=== PATIENT | male | born 1960 | race African-American/Black ===

== ENCOUNTER 2022-10-23 08:42 | Observation (INO) | payer BC, MEDICAID, SELFPAY ==
[2022-10-23] VITALS (106 sets, daily range): BP systolic 119–177; BP diastolic 67–105; PULSE 43–108; RESP 12–34; TEMP 36.6; O2SAT 90–100; BMI 21.4; BMI 20.2
--- NOTE | 2022-10-23 08:47 | CT_ITS ---
WS: [id number] CT HEAD NONCONTRAST HISTORY: ACUTE SYMPTOMS OF STROKE, right-sided weakness. TECHNIQUE: Contiguous axial imaging performed through the brain in 2.5 mm imaging. Bone and soft tiss ue windows. Sagittal and coronal reformats reviewed. All CT scans at [facility] use at least one of these dose optimization techniques: automated exposure control; mA and/or kV adjustment per pa tient size (includes targeted exams where dose is matched to clinical indication); or iterative recon struction. DLP: 1092.14 mGy-cm. COMPARISON: None available. No acute intracranial hemorrhage, midline shift or mass effect. Mild atrophy and mild small vessel ischemic type changes. No infarct. Ventricles: Normal size with no hydrocephalus. No inferior displacement of the cerebellar tonsils. Paranasal sinuses: Mild mucoperiosteal thickening. No air-fluid levels. Mastoid air cells: Well pneumatized. Calvarium and scalp: Skull is intact with no soft tissue edema or swelling. CT/CT head thrombolytic 86354 IMPRESSION: 1. No acute intracranial hemorrhage or edema. 2. Very mild atrophy and mild small vessel ischemic type changes. No prior inf arct. Notified Michael Thomson DO at 10/23/2022 8:59 AM.
--- NOTE | 2022-10-23 08:54 | ED_ITS ---
HPI - Neuro Symptoms/Deficit General: Chief Complaint: Neuro Symptoms/Deficit Stated Complaint: RT SIDED WEAKNESS Time Seen by Provider: 10/23/22 08:53 Source: patient Mode of arrival: EMS History of Present Illness: 62-year-old black male presents emergency room via EMS complaining of right sided upper extremity weakness. He went to bed last night around 8:00 he was fine at that time and then he woke up at between 2 and 3 AM he states he knows he seemed to have trouble making a fist. On arrival here initial bedside exam he is actually hyperesthetic on the right side. He has no limb ataxia other aspects of the NIH score are 0. He denies any chest pain or tightness. He has previously had a stroke and states he is supposed to be on a blood thinning medicine that he is not sure the name of but he has not been taking it. Onset (ago): hour(s) (13) Time: 08:42 Last Observed Normal: 20:00 Location: left arm History of same: No Severity: mild Quality: weak Relieving factors: none Exacerbating factors: none Context: sudden onset (Woke up with symptoms) Associated symptoms: Deny chest pain, cough, diaphoresis, fevers/chills, headache(s), anorexia, malaise, nausea, seizures, short of breath, syncope, tingling, vertigo, vomiting or weakness Treatments Prior to Arrival: none Review of Systems Const: Denies: fever(s), chills, fatigue, malaise or diaphoresis ENMT: Denies: throat pain, ear or mastoid pain, nasal discharge or nasal congestion Card: Denies: chest pain or syncope Resp: Denies: dyspnea, productive cough or non-productive cough GI: Denies: abdominal pain, nausea or vomiting : Denies: flank pain, dysuria, urinary frequency or urinary urgency Musc: Denies: neck pain or back pain Skin/Breast: Denies: rash or pruritus Neuro: Denies: headache(s) or vertigo PFS ED PFSH: Medical History History of CVA (cerebrovascular accident) Family History (Updated 10/23/22 @ 12:15 by Roger Castillo MD) Other Dementia Social History (Updated 10/23/22 @ 12:16 by Roger Castillo MD) Smoking and tobacco status: current some day smoker Alcohol intake: current Alcohol intake frequency: 0-2 Drinks per Day Substance/Drug Use: current Substance/Drug use type: Marijuana NIH stroke score NIHSS: Level Of Consciousness - 1a: 0 Level Of Consciousness Questions - 1b: Both Correct Level Of Consciousness Commands - 1c: Both Correct Best Gaze - 2: Normal Visual Murguia - 3: No Visual Loss Facial Palsy - 4: Normal Motor Arm Right - 5: No Drift Motor Arm Left - 5: No Drift Motor Leg Right - 6: No Drift Motor Leg Left - 6: No Drift Limb Ataxia - 7: Present In One Limb Sensory - 8: Mild To Moderate Loss Best Language - 9: No Aphasia Dysarthia - 10: Normal Extinction And Inattention - 11: 0 Score: Total Score: 2 Physical Exam Const: GENERAL APPEARANCE: cooperative and comfortable ORIENTATION/CONSCIOUSNESS: Yes awake, Yes oriented to person, Yes oriented to place and Yes oriented to time HENMT: COMMON NORMALS: normocephalic, atraumatic and hearing grossly normal bilaterally HEAD & SCALP: normocephalic and atraumatic Resp: COMMON NORMALS: normal respiratory effort, No retractions, No use of accessory muscles and clear to auscultation bilaterally AUSCULTATION: clear to auscultation bilaterally Cardio: COMMON NORMALS: regular rate, regular rhythm and No murmurs present (Cardio) RATE: regular rate RHYTHM: regular rhythm GI: COMMON NORMALS: Soft to palpation and No hepatosplenomegaly present AUSCULTATION: Yes normoactive bowel sounds PALPATION: Yes Soft to palpation, No Tenderness to palpation present (GI), No Guarding due to palpation present (GI) and Yes No hepatosplenomegaly present Extremity: COMMON NORMALS: normal to inspection, capillary refill normal, no clubbing, cyanosis or edema, no calf tenderness and no pedal edema Neuro: SENSORIUM/ORIENTATION: Yes oriented to person, Yes oriented to place and Yes oriented to time Skin: COMMON NORMALS: no rashes or lesions noted GENERAL SKIN EXAM: no rashes or lesions noted Course Vital Signs: Vital signs: Vital Signs Pulse Rate 48 L 10/23/22 13:05 Respiratory Rate 15 10/23/22 13:05 Blood Pressure 120/88 10/23/22 13:05 Pulse Oximetry 100 10/23/22 13:05 Oxygen Delivery Me thod 10/23/22 12:38 MDM - Neuro Symptoms/Deficit Medical Decision Making Weakness in the right hand with very mild right arm ataxia decreased sensation the right as well. Patient states he has previously been on Plavix for history of stroke. No other deficits noted. He is outside the time window for any tPA and his stroke score is not high enough to warrant embolectomy. Discussed with hospitalist will admit for secondary prevention and rehab. Medical Records I reviewed the patient's medical records. Lab Data I reviewed the patient's lab results. 10/23/22 08:54 10/23/22 08:[address] 10/23/22 08:47 IMPRESSION: 1. No acute intracranial hemorrhage or edema. 2. Very mild atrophy and mild small vessel ischemic type changes. No prior infarct. Notified Michael Thomson DO at 10/23/2022 8:59 AM. Chest X-Ray 10/23/22 12:19 IMPRESSION: No acute chest abnormality. Laboratory Results WBC 3.5 10^3/uL (4.0-10.0) L 10/23/22 08:54 RBC 5.63 10^6/uL (4.1-5.3) H 10/23/22 08:54 Hgb 12.3 g/dL (11.7-16.6) 10/23/22 08:54 Hct 40.4 % (42.0-52.0) L 10/23/22 08:54 MCV 71.8 fl (80-94) L 10/23/22 08:54 MCH 21.8 pg (28.0-34.0) L 10/23/22 08:54 MCHC 30.4 g/dL (30.0-36.0) 10/23/22 08:54 RDW 15.9 % (12.1-15.1) H 10/23/22 08:54 Plt Count 271 10^3/cmm (130-400) 10/23/22 08:54 MPV 9.0 fL (7.4-10.4) 10/23/22 08:54 Neut % (Auto) 44.0 % 10/23/22 08:54 Lymph % (Auto) 33.6 % 10/23/22 08:54 Dunn % (Auto) 11.8 % 10/23/22 08:54 Eos % (Auto) 8.0 % 10/23/22 08:54 Baso % (Auto) 2.0 % 10/23/22 08:54 Neut # (Auto) 1.53 10^3/uL (1.8-7.7) L 10/23/22 08:54 Lymph # (Auto) 1.2 10^3/uL (0.8-4.8) 10/23/22 08:54 Dunn # (Auto) 0.4 10^3/uL (0.2-0.9) 10/23/22 08:54 Eos # (Auto) 0.3 10^3/uL (0.0-0.8) 10/23/22 08:54 Baso # (Auto) 0.1 10^3/uL (0.0-0.1) 10/23/22 08:54 Nucleated RBC % (auto) 0 % 10/23/22 08:54 Nucleated RBCs # 0.0 /100WBC 10/23/22 08:54 PT 12.30 SECONDS (12.1-14.9) 10/23/22 09:08 INR 0.89 (0.8-1.2) 10/23/22 09:08 APTT 33.0 SECONDS (23.9-36.7) 10/23/22 09:08 Sodium 133 mmol/L (136-145) L 10/23/22 08:54 Potassium 3.9 mmol/L (3.5-5.1) 10/23/22 08:54 Chloride 102 mmol/L (98-107) 10/23/22 08:54 Carbon Dioxide 26 mmol/L (22-29) 10/23/22 08:54 Anion Gap 8.9 (5-19) 10/23/22 08:54 BUN 12 mg/dL (8-23) 10/23/22 08:54 Creatinine 0.9 mg/dL (0.7-1.2) 10/23/22 08:54 GFR Calculation 103.1 mL/min (90-130) 10/23/22 08:54 Glucose 92 mg/dL (65-115) 10/23/22 08:54 POC Glucose 97 mg/dL (70-110) 10/23/22 09:10 Calculated Osmolality 275 mOsm/kg (285-295) L 10/23/22 08:54 Calcium 8.2 mg/dL (8.5-10.5) L 10/23/22 08:54 Total Bilirubin 0.3 mg/dL (0.15-1.2) 10/23/22 08:54 AST 23 U/L (0-40) 10/23/22 08:54 ALT 16 U/L (0-41) 10/23/22 08:54 Alkaline Phosphatase 82 U/L (40-130) 10/23/22 08:54 Total Protein 6.4 g/dL (6.6-8.7) L 10/23/22 08:54 Albumin 3.7 g/dL (3.5-5.2) 10/23/22 08:54 Globulin 2.7 g/dL (1.3-4.6) 10/23/22 08:54 TSH 1.00 uIU/mL (0.27-4.20) 10/23/22 08:54 Discharge Plan Discharge Patient Disposition: Admitted As Inpatient Admit Provider: Roger Castillo Clinical Impression: Cerebrovascular accident, History of CVA (cerebrovascular accident) Condition: Stable Coding Level of Care Code ED Process Coordinator for Tacos Abdi
[2022-10-23 09:03] LABS: Basophils # 0.1 10^3/uL (0.0-0.1); Eosinophils # 0.3 10^3/uL (0.0-0.8); Hematocrit 40.4 % (42.0-52.0); Hemoglobin 12.3 g/dL (11.7-16.6); Lymphocytes # 1.2 10^3/uL (0.8-4.8); Lymphocytes % 33.6 %; Mean Corpuscular HGB Conc 30.4 g/dL (30.0-36.0); Mean Corpuscular Hemoglobin 21.8 pg (28.0-34.0); Mean Corpuscular Volume 71.8 fl (80-94); Monocytes # 0.4 10^3/uL (0.2-0.9); Monocytes % 11.8 %; Neutrophils # 1.53 10^3/uL (1.8-7.7); Nucleated Red Blood Cells % 0 %; Platelet Count 271 10^3/cmm (130-400); Red Blood Count 5.63 10^6/uL (4.1-5.3); Red Cell Distribution Width 15.9 % (12.1-15.1); White Blood Count 3.5 10^3/uL (4.0-10.0)
[2022-10-23 09:15] LABS: Glucose Point of Care 97 mg/dL (70-110)
[2022-10-23 09:21] LABS: Alanine Aminotransferase 16 U/L (0-41); Albumin Level 3.7 g/dL (3.5-5.2); Alkaline Phosphatase 82 U/L (40-130); Anion Gap 8.9 (5-19); Aspartate Amino Transferase 23 U/L (0-40); Blood Urea Nitrogen 12 mg/dL (8-23); Calcium 8.2 mg/dL (8.5-10.5); Carbon Dioxide 26 mmol/L (22-29); Chloride 102 mmol/L (98-107); Globulin 2.7 g/dL (1.3-4.6); Glomerular Filtration Rate 103.1 mL/min (90-130); Glucose 92 mg/dL (65-115); Osmolality Calculated 275 mOsm/kg (285-295); Potassium 3.9 mmol/L (3.5-5.1); Sodium 133 mmol/L (136-145); Total Bilirubin 0.3 mg/dL (0.15-1.2); Total Protein 6.4 g/dL (6.6-8.7)
[2022-10-23 09:43] LABS: INR 0.89 (0.8-1.2)
--- NOTE | 2022-10-23 09:58 | ECG_ITS ---
[facility] Test Date: 2022-10-23 Pat Name: Juan Ghotra Department: Room: Gender: Male Roll Over Loader: : 1960 Requested By: Michael Avalos Order Number: [id number] Edgar MD: Tuan Bonner M.D. Measurements Intervals [place] Rate: 47 P: 78 NH: 157 QRS: 82 QRSD: 110 T: 53 QT: 443 QTc: 395 Interpretive Statements SINUS BRADYCARDIA SEPTAL MYOCARDIAL INFARCTION , PROBABLY OLD [40+ ms Q WAVE IN V1/V2] No previous ECG available for comparison Electronically Signed On 10-23-2022 13:06:38 CDT by Tuan Bonner M.D. [email or web address]
--- NOTE | 2022-10-23 11:05 | PM.HP ---
Providers/Chief Complaint Admitting Physician: Roger Castillo MD Chief Complaint: RT SIDED WEAKNESS History of Present Illness Juan Ghotra is a 62 year old male presenting to the emergency department complaining of right hand numbness, weakness, and pain. He reports he was well when he went to sleep around 8 PM last night. Upon awakening in the middle of the night, he reports that he had difficulty working the buttons on his pants to go urinate. He reports that that discomfort has continued. He had first thought he might have compressed the wrist while sleeping on the couch. He denies any speech difficulty or lower leg weakness. He reports 11 years ago he had a stroke affecting the left side of his body. He reports he had significant weakness on this side for many months before it seemed to finally resolved. He reports a left facial droop at that time. He states he is on Plavix, but this was stopped when he no longer had any refills. He denies any chest pain, headache, difficulty swallowing, nausea. Review of Systems General: Reports: 10 or more systems reviewed and unremarkable except in HPI and below Const: Denies: fever(s) Eyes: Denies: change in vision ENMT: Denies: throat pain Card: Denies: chest pain Resp: Denies: dyspnea GI: Denies: abdominal pain, hematochezia or melena Neuro: Reports: numbness in extremities and weakness in extremities Medications/Allergies Home Medications Medication Instructions Recorded Confirmed Last Taken Type No Known Home Medications 10/23/22 10/23/22 Unknown History Allergies Allergy/AdvReac Type Severity Reaction Status Date / Time No Known Allergies Allergy Verified 10/23/22 09:15 PFSH Acute PFSH: Medical History History of CVA (cerebrovascular accident) Family History (Updated 10/23/22 @ 12:15 by Roger Castillo MD) Other Dementia Social History (Updated 10/23/22 @ 12:16 by Roger Castillo MD) Smoking and tobacco status: current some day smoker Alcohol intake: current Alcohol intake frequency: 0-2 Drinks per Day Substance/Drug Use: current Substance/Drug use type: Marijuana Vitals/I&O/Wt Last Vital Signs Pulse 53 L 10/23/22 09:15 Resp 18 10/23/22 09:15 BP 149/87 10/23/22 09:15 Pulse Ox 100 10/23/22 09:15 O2 Del Method 10/23/22 09:10 Weight last 48 hrs Weight 95.254 kg Physical Exam Narrative: General exam is a black male, no distress, conversant and pleasant HEENT: Atraumatic and normocephalic. Pupils equally round. Oropharynx clear. Neck is supple no lymphadenopathy thyromegaly Cardiovascular bradycardic, regular, no murmur Lungs clear no wheezing or crackles Abdomen is soft nontender positive bowel sounds. No obvious organomegaly exam was deferred Extremities no cyanosis clubbing or edema, cap refill brisk Skin intact Neuro: No facial droop, no significant drift. I did not check his gait but discussed gait with nursing who observed this and reported to be normal. He does have some weakness in his right upper extremity. This appears to only be his hand and wrist area. He has increased pain with flexion and extension of his wrist. He has numbness of all of his fingers, not truly following the pattern of ulnar or median nerve entrapment. Data 10/23/22 08:54 10/23/22 08:54 Other Labs: PT and PTT are normal LFTs within normal limits, calcium 8.2, TSH which I ordered is 1, albumin 3.7 I have ordered a chest x-ray which I will review Head CT demonstrated no acute changes EKG which I reviewed demonstrates sinus bradycardia, normal axis, no acute changes A&P Assessment and plan (1) Weakness: Patient with weakness and pain right upper extremity. CVA is not completely excluded. However, nerve compression at the wrist is not completely out of the question. He does report previous history of CVA, diagnosed clinically, with no work-up. Check carotid ultrasound, echocardiogram Telemetry Initiate Plavix, aspirin and statin. Aspirin 325 mg p.o. now x1 CBC BMP in the morning IV fluids Therapy consultations Lipid profile in the morning Observation (2) History of CVA (cerebrovascular accident): see above Plan Tobacco dependency. Counseling 3 to 5 minutes. Discussed abstinence. Other medical problems as outlined in past medical history Lovenox for DVT prophylaxis Full code` He will need arrangements for a primary care provider as well. Attestations Medical Necessity Statement*: Will need less than 2 midnight stay for evaluation and treatment of right upper extremity numbness, weakness, and pain. Diagnoses Weakness R53.1 History of CVA (cerebrovascular accident) Z86.73 Time Spent (min) 39
--- NOTE | 2022-10-23 11:09 | USCV_ITS ---
Brandin Juan Age: 62 Gender: M : 1960 Exam Date: 10/23/2022 12:16 Ordering Phys: Roger Castillo MD Technologist: Chilo Ward Exam Location: [facility] [place] Indication: cva Risk Factors: Previous Vascular Surgery: Right Brachial BP: / Left Brachial BP: / Right Left Velocity (cm/s) Spectral Plaque Velocity (cm/s) Spectral Plaque Syst/Diast Broadening Syst/Diast Broadening 122.40/30.90 Prox CCA 136.70/ 38.80 79.40/ 17.60 Mid CCA 88.60 / 24.90 80.50/ 17.60 Distal CCA 96.30 / 15.50 111.90/38.80 Prox ICA 96.30 / 28.00 116.50/35.70 Mid ICA 115.00/ 31.10 110.30/40.40 Distal ICA 94.80 / 38.80 188.00 ECA 146.00 0.95 ICA/CCA 0.84 Antegrade Vertebral Antegrade 71.50/ 15.50 cm/s 80.80/ 21.80 cm/s Tri Subclavian Tri 99.40 144.5 0 FINDINGS Comparison: none available. No significant elevation of systolic or diastolic velocities. Waveforms are normal. Mild bilateral scattered calcified plaque and intimal thickening throughout the common carotid arteries and extending through the bifurcation. Antegrade vertebral arteries. CONCLUSIONS Bilateral ICA stenosis less than 50%. Mild carotid atherosclerosis. Dr. Alicia Mcdowell DO (Electronically Signed) Final Date: 23 October 2022 14:40 S
--- NOTE | 2022-10-23 11:26 | USCV_ITS ---
Juan Ghotra Age: 62 Gender: M : 1960 Exam Date: 10/23/2022 11:57 Ordering Phys: Roger Castillo MD Technologist: Chilo Ward [place] [facility] [place]ication: cva BP: 120 / 88 HR: 57 Rhythm: Sinus Technical Quality: Adequate MEASUREMENTS (Male / Female) Normal Values 2D ECHO LV Diastolic Diameter PLAX 4.4 cm 4.2 - 5.9 / 3.9 - 5.3 cm LV Systolic Diameter PLAX 2.8 cm IVS Diastolic Thickness 1.3 cm 0.6 - 1.0 / 0.6 - 0.9 cm IVS Systolic Thickness 2.0 cm LVPW Diastolic Thickness 1.5 cm 0.6 - 1.0 / 0.6 - 0.9 cm LVPW Systolic Thickness 1.7 cm LVOT Diameter 2.1 cm LV Ejection Fraction 2D Teich 66.6 % LV Ejection Fraction MOD 2C 75.2 % LV Ejection Fraction 2C AL 73.9 % LA Diameter 4.1 cm IVC Diameter 1.7 cm M-MODE Aortic Annulus Diameter 4.0 cm LA Ao Ratio MM 1.1 MV E Point Septal Separation 1.1 cm DOPPLER AV Peak Velocity 177.3 cm/s LVOT Peak Velocity 110.0 cm/s AV Area Cont Eq vti 2.7 cm squared AV Area Cont Eq pk 2.1 cm squared MV Area PHT 5.0 cm squared Mitral E to A Ratio 0.9 MV E' Velocity 57.5 cm/s Mitral E to MV E' Ratio 10.2 Mitral E to LV E' Lateral Ratio 10.1 Mitral E to LV E' Septal Ratio 10.4 TR Peak Velocity 240.3 cm/s TR Peak Gradient 23.1 mmHg TV Peak E Velocity 83.0 cm/s Right Atrial Pressure 3.0 mmHg Pulmonary Artery Systolic Pressu 26.1 mmHg FINDINGS Left Ventricle Left ventricle is normal in size. LV systolic function is normal with EF of 60 to 65%. No regional wall motion normalities are seen. Grade 1 diastolic dysfunction Right Ventricle Normal in size and function Right Atrium Normal in size Left Atrium Normal in size Mitral Valve Structurally normal mitral valve. No significant stenosis or regurgitation. Aortic Valve Aortic valve is thickened and calcified. No significant stenosis or regurgitation. Tricuspid Valve Mild tricuspid regurgitation.Insufficient TR jet to calculate RVSP Pulmonic Valve Not well visualized. Pericardium Normal Aorta Normal in size IVC Appears to be normal CONCLUSIONS LV systolic function is normal with EF of 60 to 65%. Grade 1 diastolic dysfunction Mild tricuspid regurgitation No comparison studies are available Tuan Bonner MD (Electronically Signed) Final Date: 24 October 2022 07:38 S
--- NOTE | 2022-10-23 12:19 | XR_ITS ---
WS: [id number] XR chest 1V portable [id number] REASON FOR EXAM: CVA FINDINGS: Mild tortuosity the thoracic aorta. Normal heart size. Calcified granulomatous disease in both hemithoraces. No acute or subacute pulmonary parenchymal or pleural abnormality. Bony thorax is intact without significant abnormality. XR/XR chest 1V portable [id number] IMPRESSION: No acute chest abnormality.
[2022-10-23] MEDS: aspirin 325 mg Tablet PO (12:24)
[2022-10-23] MEDS: enoxaparin 40 mg/0.4 mL Syringe SUBCUT (12:24)
[2022-10-23] MEDS: sodium chloride 0.9% 1,000 ML 75 ML IV (12:55)
--- NOTE | 2022-10-23 15:42 | PC.OT ---
OT EVALUATION ATTEMPTED. PATIENT IS SLEEPING SOUNDLY. WILL ATTEMPT AGAIN AT A LATER TIME
[2022-10-23] MEDS: atorvastatin 40 mg Tablet PO (21:08)
[2022-10-24] MEDS: sodium chloride 0.9% 1,000 ML 75 ML IV (02:22)
[2022-10-24 04:07] VITALS: BP 154/86; PULSE 59; RESP 10; TEMP 36.8; O2SAT 100
[2022-10-24 04:15] LABS: Basophils # 0.1 10^3/uL (0.0-0.1); Basophils % 1.8 %; Eosinophils # 0.3 10^3/uL (0.0-0.8); Eosinophils % 7.8 %; Hematocrit 41.3 % (42.0-52.0); Hemoglobin 12.7 g/dL (11.7-16.6); Lymphocytes # 1.6 10^3/uL (0.8-4.8); Lymphocytes % 42.7 %; Mean Corpuscular HGB Conc 30.8 g/dL (30.0-36.0); Mean Corpuscular Hemoglobin 21.9 pg (28.0-34.0); Mean Corpuscular Volume 71.2 fl (80-94); Mean Platelet Volume 8.1 fL (7.4-10.4); Monocytes # 0.5 10^3/uL (0.2-0.9); Monocytes % 11.7 %; Neutrophils # 1.38 10^3/uL (1.8-7.7); Nucleated Red Blood Cells % 0 %; Platelet Count 240 10^3/cmm (130-400); Red Cell Distribution Width 16.1 % (12.1-15.1); White Blood Count 3.8 10^3/uL (4.0-10.0)
[2022-10-24 04:29] LABS: Estmated Average Glucose 123; Hemoglobin A1C 5.9 % (4.0-6.0)
[2022-10-24 04:40] LABS: Anion Gap 13.1 (5-19); Blood Urea Nitrogen 11 mg/dL (8-23); Calcium 8.4 mg/dL (8.5-10.5); Carbon Dioxide 25 mmol/L (22-29); Chloride 105 mmol/L (98-107); Chol HDL Ratio 2.59 mg/dL (1.0-5.00); Cholesterol 145 mg/dL (0-200); Glomerular Filtration Rate 103.1 mL/min (90-130); Glucose 101 mg/dL (65-115); HDL Cholesterol 56 mg/dL (60-100); LDL Cholesterol Calculated 76 mg/dL (50-129); LDL HDL Ratio 1.36 RATIO (0.00-3.22); Osmolality Calculated 288 mOsm/kg (285-295); Potassium 4.1 mmol/L (3.5-5.1); Sodium 139 mmol/L (136-145); Triglycerides 64 mg/dL (0-150)
[2022-10-24 05:35] VITALS: PULSE 45
--- NOTE | 2022-10-24 07:46 | PM.DCS ---
Discharge Providers Date of Admission: 10/23/22 12:25 Date of Discharge: October 24, 2022 Attending Provider at Admission: Roger Castillo MD Attending Provider at Discharge: Roger Castillo MD Diagnoses at Discharge Discharge Diagnosis (1) Weakness: Status: Acute (2) History of CVA (cerebrovascular accident): Status: Acute Reason for Visit Reason for Visit: RT SIDED WEAKNESS Hospital Course Hospital Course Patient presented to the hospital with weakness in his right hand, right wrist pain. Emergency department was concerned he may have had a CVA. He had previously been maintained on Plavix secondary to past CVA but it stopped this on his own a year or so before. He had no history of any heart rhythm abnormalities. On arrival on my exam he had no deficits other than some right wrist pain, right hand weakness. I could not delineate any weakness otherwise in his upper arm on the right. No speech deficits, gait abnormalities. He was restarted on Plavix, aspirin, cholesterol medicine. EKG demonstrated no atrial fibrillation and during course of the night his rhythm did not show atrial fibrillation. Echocardiogram demonstrated preserved EF, with grade 1 diastolic dysfunction mild tricuspid regurgitation. Carotid duplex demonstrated bilateral ICA stenosis less than 50%, mild atherosclerotic disease. Chest x-ray, head CT essentially normal for age. He was given an opportunity to ask questions, and agreed with the plan regarding discharge, follow-up with primary care provider which we will arrange, continuing Plavix, cholesterol medicine. He was instructed not to smoke, or drink alcohol. If he has continued problems with the right wrist he will review this with primary care. At discharge he reported the right wrist was slightly less painful. Numbness and tingling in his fingers had gone away. Strength was improved secondary to reduction of pain. Physical Exam Narrative: General exam no distress Neck is supple Cardiovascular regular rate and rhythm Lungs clear Abdomen is soft Extremities no cyanosis clubbing or edema Neuro no deficits. Right hand slightly weak, appears to be secondary to pain. Discharge Data Studies Completed and Pending Completed Studies During Hospitalization Category Date Time Status CT head thrombolytic [id number] Stat Cat Scan 10/23/22 08:47 Completed XR chest 1V portable [id number] Routine Exams 10/23/22 12:19 Completed CV carotid duplex BI* [id number] Routine Ultrasound 10/23/22 11:09 Completed CV. echo complete* [id number] Routine Ultrasound 10/23/22 11:26 Completed Pending at discharge Category Date Time Status Drug Screen, Urine Stat Lab 10/23/22 08:54 Uncollected Urinalysis Stat Lab 10/23/22 08:54 Uncollected Radiology Impressions Head CT 10/23/22 08:47 IMPRESSION: 1. No acute intracranial hemorrhage or edema. 2. Very mild atrophy and mild small vessel ischemic type changes. No prior infarct. Notified Michael Thomson DO at 10/23/2022 8:59 AM. Chest X-Ray 10/23/22 12:19 IMPRESSION: No acute chest abnormality. Laboratory Results WBC 3.8 10^3/uL (4.0-10.0) L 10/24/22 04:04 RBC 5.80 10^6/uL (4.1-5.3) H 10/24/22 04:04 Hgb 12.7 g/dL (11.7-16.6) 10/24/22 04:04 Hct 41.3 % (42.0-52.0) L 10/24/22 04:04 MCV 71.2 fl (80-94) L 10/24/22 04:04 MCH 21.9 pg (28.0-34.0) L 10/24/22 04:04 MCHC 30.8 g/dL (30.0-36.0) 10/24/22 04:04 RDW 16.1 % (12.1-15.1) H 10/24/22 04:04 Plt Count 240 10^3/cmm (130-400) 10/24/22 04:04 MPV 8.1 fL (7.4-10.4) 10/24/22 04:04 Neut % (Auto) 36.0 % 10/24/22 04:04 Lymph % (Auto) 42.7 % 10/24/22 04:04 [place] % (Auto) 11.7 % 10/24/22 04:04 Eos % (Auto) 7.8 % 10/24/22 04:04 Baso % (Auto) 1.8 % 10/24/22 04:04 Neut # (Auto) 1.38 10^3/uL (1.8-7.7) L 10/24/22 04:04 Lymph # (Auto) 1.6 10^3/uL (0.8-4.8) 10/24/22 04:04 [place] # (Auto) 0.5 10^3/uL (0.2-0.9) 10/24/22 04:04 Eos # (Auto) 0.3 10^3/uL (0.0-0.8) 10/24/22 04:04 Baso # (Auto) 0.1 10^3/uL (0.0-0.1) 10/24/22 04:04 Nucleated RBC % (auto) 0 % 10/24/22 04:04 Nucleated RBCs # 0.0 /100WBC 10/24/22 04:04 PT 12.30 SECONDS (12.1-14.9) 10/23/22 09:08 INR 0.89 (0.8-1.2) 10/23/22 09:08 APTT 33.0 SECONDS (23.9-36.7) 10/23/22 09:08 Sodium 139 mmol/L (136-145) 10/24/22 04:04 Potassium 4.1 mmol/L (3.5-5.1) 10/24/22 04:04 Chloride 105 mmol/L (98-107) 10/24/22 04:04 Carbon Dioxide 25 mmol/L (22-29) 10/24/22 04:04 Anion Gap 13.1 (5-19) 10/24/22 04:04 BUN 11 mg/dL (8-23) 10/24/22 04:04 Creatinine 0.9 mg/dL (0.7-1.2) 10/24/22 04:04 GFR Calculation 103.1 mL/min (90-130) 10/24/22 04:04 Glucose 101 mg/dL (65-115) 10/24/22 04:04 POC Glucose 97 mg/dL (70-110) 10/23/22 09:10 Estimat Average Glucose 123 10/24/22 04:04 Hemoglobin A1c 5.9 % (4.0-6.0) 10/24/22 04:04 Calculated Osmolality 288 mOsm/kg (285-295) 10/24/22 04:04 Calcium 8.4 mg/dL (8.5-10.5) L 10/24/22 04:04 Total Bilirubin 0.3 mg/dL (0.15-1.2) 10/23/22 08:54 AST 23 U/L (0-40) 10/23/22 08:54 ALT 16 U/L (0-41) 10/23/22 08:54 Alkaline Phosphatase 82 U/L (40-130) 10/23/22 08:54 Total Protein 6.4 g/dL (6.6-8.7) L 10/23/22 08:54 Albumin 3.7 g/dL (3.5-5.2) 10/23/22 08:54 Globulin 2.7 g/dL (1.3-4.6) 10/23/22 08:54 Triglycerides 64 mg/dL (0-150) 10/24/22 04:04 Cholesterol 145 mg/dL (0-200) 10/24/22 04:04 LDL Cholesterol, Calc 76 mg/dL (50-129) 10/24/22 04:04 HDL Cholesterol 56 mg/dL (60-100) L 10/24/22 04:04 LDL/HDL Ratio 1.36 RATIO (0.00-3.22) 10/24/22 04:04 Cholesterol/HDL Ratio 2.59 mg/dL (1.0-5.00) 10/24/22 04:04 TSH 1.00 uIU/mL (0.27-4.20) 10/23/22 08:54 Vitals Last Vital Signs Temp 98.3 F 10/24/22 04:07 Pulse 45 L 10/24/22 05:35 Resp 10 L 10/24/22 04:07 BP 154/86 10/24/22 04:07 Pulse Ox 100 10/24/22 04:07 O2 Del Method 10/23/22 12:38 Discharge Plan Discharge Patient Disposition: Home Condition: Stable Prescriptions: New atorvastatin 40 mg Tablet 40 mg PO BEDTIME Qty: 30 0RF clopidogrel 75 mg Tablet 75 mg PO DAILY Qty: 30 0RF No Action No Known Home Medications Discharge Orders: Discharge Order (Routine); Ordered 10/24/22 Ordered By: Roger Castillo Discharge Diet: Cardiac Discharge Activity: Increase activity as tolerated Patient Instructions: Opioid Safety Activity Restrictions/Additional Instructions: Please arrange for follow-up with primary care provider, 4 to 7 days. Asked patient whether he would like meds to beds Take medicine as prescribed Return for any concerns Reviewed with primary care provider possibility of tenosynovitis, median nerve compression Patient's Health Concerns: Pain and weakness right hand, prior history of stroke Assessment: Condition most likely related to tenosynovitis wrist or carpal tunnel, improving Plan of Treatment: Follow-up with primary care provider Secondary to past history of stroke we will resume his Plavix and add atorvastatin. He had been on Plavix long-term in the past. Discharge Attestations Time Spent in Discharge Care*: greater than 30 min Quality Metrics Clinical Quality Measures [ No reported AMI, CVA or VTE this stay] Coding Level of Care Code 86160 Diagnoses Weakness R53.1 History of CVA (cerebrovascular accident) Z86.73 Time Spent (min) 35
[2022-10-24 08:06] VITALS: BP 150/78; PULSE 62; RESP 21; TEMP 36.4; O2SAT 99
[2022-10-24] MEDS: aspirin 81 mg EC Tablet PO (09:42)
[2022-10-24] MEDS: clopidogrel 75 mg Tablet PO (09:42)
[2022-10-24 10:00] VITALS: BP 150/78; PULSE 62; RESP 21; TEMP 36.4
--- NOTE | 2022-10-24 10:15 | PC.CHAP ---
Pastoral Care Encounter/Spiritual Assessment Type of Contact [] Declined director volunteer services visit [] Patient/Family/Request visit [] Outpatient visit [] Follow-up visit [] Physician referral [] Code/Alert [x] Routine visit [] Staff referral [] Actively dying [] Patient sleeping [] Family support [] [] Out of room [] Palliative care [] [] Receiving care in room [] Pre-surgical visit [] Trauma [] Long length of stay [] ICU visit [] Other: Relational/Emotional Strength [] Patient feels connected with others/family/visitors/staff [] Distress [] Loneliness/isolation [] Abandonment Spirituality of Patient [x] Person of Sofiya [] Attends Hoahaoism of their Sofiya [] Believes in Prayer [] Reads Bible or Congregation materials [] There are Spiritual issues to be addressed Ivf Embryologist Interventions [x] Prayer [] Active listening [] Non-anxious presence [] Spiritual/emotional support [] Crisis/trauma care [] Spiritual counseling [] Bereavement support [] Provided bereavement packet [] Provided Bible/devotional materials [] Provided toy/stuffed animal, coloring book to patient or family member [] Provided Communion [] Anointing/[place] [] Salvation [] Completed spiritual assessment [] Other: Impact on Illness or Injury [] Angry [] Fearful [] Anxious [] Often cries [] Exhaustion [] Unable to work [] Unable to attend pentecostal [] Unable to walk/stand [] Unable to read [] Unable to drive [] Unable to eat/drink [] Unable to sleep [] Unable to be with family [] Patient intubated [] Other: Summary Time spent with patient 10 min
[2022-10-24 11:23] VITALS: BP 150/78; PULSE 62; RESP 21; TEMP 36.4; O2SAT 99
--- NOTE | 2022-10-24 11:24 | PC.NURSE ---
Patient meds delivered to bedside. Patient appointment established with new PCP. Patient education provided no questions or concerns. Banjo Repairer will be taking patient to his car in town and case management is trying to get patient accepted to a skilled nursing.
== END 2022-10-24 12:15 | disposition home or self-care (01) ==
LOC: ER 10:53 → CSU 13:14
PROVIDERS: Admitting Provider Internal Medicine; Emergency Provider Family Medicine; Visit Provider Internal Medicine
DX: R53.1 Weakness (principal); I07.1 Rheumatic tricuspid insufficiency; F17.200 Nicotine dependence, unspecified, uncomplicated; Z86.73 Personal history of transient ischemic attack (TIA), and cerebral infarction without residual deficits
CPT/HCPCS: 36415; 36416; 70450; 71045; 80048; 80053; 80061; 82962; 83036; 84443; 85025; 85610; 85730; 92523; 93005; 93306; 93880; 96360; 96361; 96372; 97161; 97165; 99285; G0378; J1650; J7030

== ENCOUNTER 2023-05-08 00:29 | Emergency (ER) | payer OTHER, MEDICAID, SELFPAY ==
[2023-05-08 00:31] VITALS: BP 172/101; PULSE 55; RESP 16; TEMP 36.7; O2SAT 95; BMI 22.9
[2023-05-08 00:37] VITALS: BP 172/101; PULSE 47; RESP 22; O2SAT 100
--- NOTE | 2023-05-08 00:38 | USR_ITS ---
PROCEDURE INFORMATION: Exam: US Duplex Left Lower Extremity Veins, Limited Exam date and time: 05/08/2023 1:02 AM Age: 62 years old Clinical indication: Leg, upper and leg, lower; Patient HX: Left shooting leg pain today from ankle to groin. No history of dvt per patient. TECHNIQUE: Imaging protocol: Real-time duplex ultrasound of the left extremity with 2-D garzon scale, color Doppler flow and spectral waveform analysis including responses to compression and other maneuvers (when performed) with image documentation. Limited exam focused on the left lower extremity veins. COMPARISON: No relevant prior studies available. FINDINGS: Left deep veins: Unremarkable. The common femoral, femoral, proximal profunda femoral and popliteal veins are patent without thrombus. Normal Doppler waveforms. Normal compressibility and/or augmentation response. Superficial veins: Unremarkable. Saphenofemoral junction is patent without thrombus. Soft tissues: Unremarkable. US/[place] [id number] IMPRESSION: No evidence of deep vein thrombosis.
--- NOTE | 2023-05-08 00:38 | XRR_ITS ---
PROCEDURE INFORMATION: Exam: XR Left Hip Exam date and time: 05/08/2023 12:49 AM Age: 62 years old Clinical indication: Patient HX: Patient says he was laying in bed when he started to get left hip pain, he says he wiggled his toes and the pain shot up to his chest TECHNIQUE: Imaging protocol: Radiologic exam of the left hip. Views: 2 or 3 views hip with pelvis when performed. COMPARISON: No relevant prior studies available. FINDINGS: Bones/joints: Those structures are intact. No acute fracture. The femoral heads are contained within the respective acetabula. No joint dislocation. Soft tissues: Unremarkable. XR/XR hip LT 2-3V wo/w pel* [id number] IMPRESSION: No acute findings.
--- NOTE | 2023-05-08 00:40 | XRR_ITS ---
PROCEDURE INFORMATION: Exam: XR Chest Exam date and time: 05/08/2023 12:43 AM Age: 62 years old Clinical indication: Chest wall pain; Patient HX: Patient says he was laying in bed when he started to get left hip pain, he says he wiggled his toes and the pain shot up to his chest; Additional info: Cp TECHNIQUE: Imaging protocol: Radiologic exam of the chest. Views: 1 view. COMPARISON: CR XR chest 1V portable [id number] 10/23/2022 11:34 AM FINDINGS: Lungs: Unremarkable. No consolidation. Pleural spaces: Unremarkable. No pleural effusion. No pneumothorax. Heart/Mediastinum: Borderline cardiomegaly on portable view. Bones/joints: Unremarkable. XR/XR chest 1V portable [id number] IMPRESSION: No acute findings.
--- NOTE | 2023-05-08 00:40 | ECG_ITS ---
[facility] Test Date: 2023-05-08 Pat Name: Juan Ghotra Department: Room: Gender: Male Business Development Engineer: : 1960 Requested By: Ludy Fink Order Number: [id number] Edgar MD: Fátima Lowery M.D. Measurements Intervals [place] Rate: 47 P: 78 WY: 168 QRS: 79 QRSD: 101 T: 69 QT: 464 QTc: 413 Interpretive Statements SINUS BRADYCARDIA POSSIBLE LEFT VENTRICULAR HYPERTROPHY [VOLTAGE CRITERIA PLUS LAE OR QRS WIDENING] Compared to ECG 10/23/2022 09:58:24 Myocardial infarct finding no longer present Electronically Signed On 05-08-2023 12:17:33 CDT by Fátima Lowery M.D. [email or web address]
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
[2023-05-08 01:00] VITALS: BP 169/95; PULSE 48; RESP 16; O2SAT 100
[2023-05-08 01:06] LABS: Basophils # 0.1 10^3/uL (0.0-0.1); Basophils % 1.2 %; Eosinophils # 0.2 10^3/uL (0.0-0.8); Eosinophils % 3.9 %; Hematocrit 39.5 % (37-53); Lymphocytes # 2.6 10^3/uL (0.8-4.8); Lymphocytes % 52.9 %; Mean Corpuscular HGB Conc 30.6 g/dL (30-55); Mean Corpuscular Hemoglobin 22.3 pg (27-33); Mean Corpuscular Volume 72.7 fl (82-101); Mean Platelet Volume 8.8 fL (7.4-10.4); Monocytes # 0.5 10^3/uL (0.2-0.9); Monocytes % 11.2 %; Neutrophils # 1.48 10^3/uL (1.8-7.7); Neutrophils % 30.6 %; Nucleated Red Blood Cells % 0 %; Platelet Count 230 10^3/cmm (157-399); Red Blood Count 5.43 10^6/uL (3.85-5.65); Red Cell Distribution Width 15.1 % (12.1-15.1); White Blood Count 4.84 10^3/uL (3.29-11.43)
[2023-05-08 01:21] LABS: Troponin(5th) Baseline 10 ng/L (0-15)
[2023-05-08 01:23] LABS: Albumin Level 4.2 g/dL (3.5-5.2); Alkaline Phosphatase 69 U/L (40-130)
[2023-05-08] MEDS: dexamethasone 10 mg/mL INJ IVP (01:26)
[2023-05-08 01:27] LABS: Alanine Aminotransferase 20 U/L (0-41); Anion Gap 12.5 (5-19); Aspartate Amino Transferase 27 U/L (0-40); Blood Urea Nitrogen 18 mg/dL (8-23); Calcium 9.2 mg/dL (8.5-10.5); Carbon Dioxide 27 mmol/L (22-29); Globulin 2.8 g/dL (1.3-4.6); Glucose 85 mg/dL (65-115); Osmolality Calculated 287 mOsm/kg (285-295); Total Bilirubin 0.3 mg/dL (0.15-1.2)
[2023-05-08 01:28] LABS: Chloride 103 mmol/L (98-107); Potassium 4.5 mmol/L (3.5-5.1); Sodium 138 mmol/L (136-145)
[2023-05-08] MEDS: ketorolac 30 mg/mL INJ 15 MG IVP (01:28)
[2023-05-08 01:30] VITALS: BP 162/94; PULSE 51; RESP 16; O2SAT 100
--- NOTE | 2023-05-08 01:44 | PC.NURSE ---
Decadron and toradol changed from IM to IV due to IV established. approved.
[2023-05-08 02:06] VITALS: BP 149/104; PULSE 64; RESP 18; O2SAT 100
== END 2023-05-08 02:09 | disposition home or self-care (01) ==
PROVIDERS: Emergency Provider Emergency Medicine
DX: M79.605 Pain in left leg (principal); R07.9 Chest pain, unspecified; Z79.02 Long term (current) use of antithrombotics/antiplatelets; Z86.73 Personal history of transient ischemic attack (TIA), and cerebral infarction without residual deficits; F17.210 Nicotine dependence, cigarettes, uncomplicated
CPT/HCPCS: 71045; 73502; 80053; 84484; 85025; 93005; 93971; 96374; 96375; 99285; J1100; J1885

== ENCOUNTER 2023-05-09 21:30 | Emergency (ER) | payer OTHER, MEDICAID, SELFPAY ==
[2023-05-09 21:30] VITALS: BP 127/86; PULSE 44; RESP 20; TEMP 37; O2SAT 100; BMI 25.6
--- NOTE | 2023-05-09 21:32 | CTR_ITS ---
PROCEDURE INFORMATION: Exam: CT Maxillofacial Without Contrast Exam date and time: 05/09/2023 10:21 PM Age: 62 years old Clinical indication: Pain; Headache; Additional info: Injury TECHNIQUE: Imaging protocol: Computed tomography of the face without contrast. Radiation optimization: All CT scans at this facility use at least one of these dose optimization techniques: automated exposure control; mA and/or kV adjustment per patient size (includes targeted exams where dose is matched to clinical indication); or iterative reconstruction. REPORTING DATA: Count of CT and Cardiac NM exams in prior 12 months: This patient has received [address] and 0 known cardiac nuclear medicine studies in the 12 months prior to the current study. COMPARISON: CT head wo con* [id number] 05/09/2023 10:15 PM RADIATION DOSE METRICS: Total DLP (mGy-cm): 721.58 FINDINGS: Orbital cavities: Orbits are normal. Globes are unremarkable. Bones/joints: Acute fractures of the maxilla alveolar processes result in loose upper teeth 8 and 9. Old fractures of bilateral nasal bones. No other acute facial bone fractures. Paranasal sinuses: Normal. No air-fluid levels. Soft tissues: Unremarkable. CT/CT facial bones wo con* [id number] IMPRESSION: Acute fractures of the maxilla alveolar processes result in loose upper teeth 8 and 9.
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
[2023-05-09 21:57] VITALS: BP 127/81; PULSE 50; O2SAT 97
--- NOTE | 2023-05-09 22:31 | PC.NURSE ---
Rounding with patient after return from CT. PT states that he is having pain 03/01. Provider notified. Pt also states that he is hungry. Pt informed that he is NPO until scan results are back.
[2023-05-09 23:04] VITALS: BP 107/67; PULSE 52; O2SAT 98
[2023-05-09 23:18] VITALS: PULSE 52; RESP 16; O2SAT 99
== END 2023-05-09 23:26 | disposition home or self-care (01) ==
PROVIDERS: Emergency Provider Emergency Medicine
DX: S02.42XA Fracture of alveolus of maxilla, initial encounter for closed fracture (principal); S09.8XXA Other specified injuries of head, initial encounter; Z79.02 Long term (current) use of antithrombotics/antiplatelets; Z86.73 Personal history of transient ischemic attack (TIA), and cerebral infarction without residual deficits; F17.210 Nicotine dependence, cigarettes, uncomplicated; Y04.2XXA Assault by strike against or bumped into by another person, initial encounter; Y92.149 Unspecified place in prison as the place of occurrence of the external cause
CPT/HCPCS: 70450; 70486; 72125; 99284

== ENCOUNTER 2023-08-10 22:26 | Emergency (ER) | payer OTHER, BC, MEDICAID, SELFPAY ==
[2023-08-10 22:35] VITALS: BMI 20.4
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
[2023-08-10 22:45] VITALS: BP 146/76; PULSE 120; RESP 18; TEMP 36.6; O2SAT 98
== END 2023-08-10 23:03 | disposition home or self-care (01) ==
PROVIDERS: Emergency Provider Emergency Medicine
DX: S00.81XA Abrasion of other part of head, initial encounter (principal); Z86.73 Personal history of transient ischemic attack (TIA), and cerebral infarction without residual deficits; Z72.0 Tobacco use; Z79.02 Long term (current) use of antithrombotics/antiplatelets; X58.XXXA Exposure to other specified factors, initial encounter
CPT/HCPCS: 99282

== ENCOUNTER 2023-08-11 17:47 | Emergency (ER) | payer BC, MEDICAID, SELFPAY ==
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
[2023-08-11 18:21] VITALS: BP 189/114
[2023-08-11] MEDS: cloNIDine 0.1 mg Tablet 0.2 MG PO (18:21)
[2023-08-11 18:30] VITALS: BP 189/114; PULSE 114; O2SAT 98
[2023-08-11] MEDS: hyDRALAzine 25 mg Tablet PO (19:18)
--- NOTE | 2023-08-11 19:51 | PC.NURSE ---
PT REFUSING IV. PT STATES HE DOESNT WANT ANY BP MEDICATION AFTER SECOND DOSE. PT REQUESTING TO LEAVE.
== END 2023-08-11 19:53 | disposition home or self-care (01) ==
PROVIDERS: Emergency Provider Internal Medicine
DX: I10 Essential (primary) hypertension (principal); F20.9 Schizophrenia, unspecified; Z91.148 Patient's other noncompliance with medication regimen for other reason; Z79.02 Long term (current) use of antithrombotics/antiplatelets; Z86.73 Personal history of transient ischemic attack (TIA), and cerebral infarction without residual deficits; Z72.0 Tobacco use
CPT/HCPCS: 99283